=== PATIENT | male | born 1950 | race African-American/Black ===

== ENCOUNTER 2017-05-12 17:13 | Inpatient (IN) | payer SELFPAY ==
[~2017-05-12] VITALS: Ht 175.3 cm; Wt 69.8 kg
[2017-05-12 17:39] LABS: MCH 29.3 PG (29.0-34.0); MCHC 33.3 G/DL (30.0-36.0); MCV 87.8 FL (86-99); PLATELET COUNT 280 K/uL (156-360); RBC DIS.WIDTH-CV 12.3 % (11.8-14.6); RBC DIS.WIDTH-SD 39.7 % (39-53); RED BLOOD COUNT 4.44 M/uL (4.00-5.50); WHITE BLOOD COUNT 6.4 K/uL (4.1-10.2)
[2017-05-12 17:52] LABS: CHLORIDE 106 mEq/L (99-109); POTASSIUM 3.6 mEq/L (3.7-5.4); SODIUM 140 mEq/L (136-147)
[2017-05-12 17:53] LABS: GLUCOSE 113 mg/dL (70-99)
[2017-05-12 17:57] LABS: CREATININE 0.8 mg/dL (0.6-1.3)
[2017-05-12 17:58] LABS: UREA NITROGEN (BUN) 15 mg/dL (9-23)
[2017-05-12 17:59] LABS: GFR ESTIMATE (CALCULATED) > 59 mL/min/ (58.99-99999)
[2017-05-12] MEDS ORDERED: PEPCID20 MG PO (18:37)
[2017-05-12] MEDS ORDERED: NORVASC5 MG PO (18:37)
[2017-05-12] MEDS ORDERED: IBUPROFEN600 MG PO (18:37)
[2017-05-12 23:20] LABS: TROP-I INTERPRETATION NEGATIVE; TROPONIN-I < 0.01 ng/mL (0.0-0.30)
[2017-05-12 23:35] VITALS: BP 174/98
[2017-05-12 23:46] LABS: HDL CHOLESTEROL 35 MG/DL (Desirable>=40); LDL CHOLESTEROL 80 mg/dL (Desirable<100); NON-HDL CHOLESTEROL 91 mg/dL (Desirable<160); TOTAL CHOLESTEROL 126 mg/dL (Desirable<200); TRIGLYCERIDES 54 MG/DL (Normal: <150)
[2017-05-13 04:02] VITALS: BP 178/100
[2017-05-13 06:35] LABS: HEMATOCRIT 38.9 % (38.0-50.0); MCH 29.5 PG (29.0-34.0); MCHC 33.4 G/DL (30.0-36.0); MCV 88.2 FL (86-99); PLATELET COUNT 291 K/uL (156-360); RBC DIS.WIDTH-CV 12.4 % (11.8-14.6); RBC DIS.WIDTH-SD 39.9 % (39-53); RED BLOOD COUNT 4.41 M/uL (4.00-5.50); WHITE BLOOD COUNT 5.3 K/uL (4.1-10.2)
[2017-05-13 06:54] LABS: TROP-I INTERPRETATION NEGATIVE; TROPONIN-I < 0.01 ng/mL (0.0-0.30)
[2017-05-13 07:02] LABS: ALKALINE PHOSPHATASE 66 IU/L (3-129); ALT (GPT) 10 IU/L (3-49); AST (GOT) 10 IU/L (2-34); CHLORIDE 102 MEQ/L (99-109); CREATININE 0.8 MG/DL (0.6-1.3); GFR ESTIMATE (CALCULATED) > 59 mL/min/ (58.99-99999); GLUCOSE 90 mg/dL (70-99); POTASSIUM 3.7 MEQ/L (3.7-5.4); SODIUM 137 MEQ/L (136-147); TOTAL BILIRUBIN 0.8 MG/DL (0.0-1.0); UREA NITROGEN (BUN) 11 mg/dL (9-23)
[2017-05-13 07:49] VITALS: BP 156/98
[2017-05-13 10:57] LABS: TROP-I INTERPRETATION NEGATIVE; TROPONIN-I < 0.01 ng/mL (0.0-0.30)
[2017-05-13 12:00] VITALS: BP 168/94
[2017-05-13 16:00] VITALS: BP 157/87
[2017-05-13 20:00] VITALS: BP 152/92
[2017-05-14 00:06] VITALS: BP 146/98
[2017-05-14 03:29] VITALS: BP 158/94
[2017-05-14 06:57] LABS: BASOPHIL (%) 0.6 % (0-1); EOSINOPHIL COUNT 0.3 K/uL (0-0.3); HEMATOCRIT 38.5 % (38.0-50.0); HEMOGLOBIN 12.9 G/DL (12.5-16.6); IMMATURE GRANULOCYTE (%) 0.3 % (0.0-0.7); LYMPHOCYTE (%) 30.9 % (15-42); LYMPHOCYTE COUNT 1.9 K/uL (1.0-2.8); MCH 29.5 PG (29.0-34.0); MCHC 33.5 G/DL (30.0-36.0); MCV 88.1 FL (86-99); MONOCYTE (%) 8.4 % (3-12); MONOCYTE COUNT 0.5 K/uL (0-0.8); NEUTROPHIL (%) 54.8 % (45-76); NEUTROPHIL COUNT 3.4 K/uL (1.8-6.4); PLATELET COUNT 290 K/uL (156-360); RBC DIS.WIDTH-CV 12.2 % (11.8-14.6); RBC DIS.WIDTH-SD 39.3 % (39-53); RED BLOOD COUNT 4.37 M/uL (4.00-5.50); WHITE BLOOD COUNT 6.2 K/uL (4.1-10.2)
[2017-05-14 07:22] LABS: CHLORIDE 103 MEQ/L (99-109); CREATININE 0.9 MG/DL (0.6-1.3); GFR ESTIMATE (CALCULATED) > 59 mL/min/ (58.99-99999); GLUCOSE 95 mg/dL (70-99); MAGNESIUM 2.2 mg/dl (1.3-2.7); POTASSIUM 3.7 MEQ/L (3.7-5.4); SODIUM 140 MEQ/L (136-147); UREA NITROGEN (BUN) 15 mg/dL (9-23)
[2017-05-14 08:00] VITALS: BP 142/82
[2017-05-14 08:07] LABS: HEMOGLOBIN A1c (GLYCOHEMOGLOB) 4.6 % (Below 5.7)
[2017-05-14] MEDS ORDERED: ATORVASTATIN CA40 MG PO (10:42)
[2017-05-14] MEDS ORDERED: ASPIR-LOW81 MG PO (10:42)
[2017-05-14] MEDS ORDERED: AMLODIPINE BESY10 MG PO (10:42)
[2017-05-14 12:00] VITALS: BP 158/95
== END 2017-05-14 18:16 | disposition home or self-care (01) | DRG 66 ==
LOC: EME 17:13 → ENRESERV 20:51 → EDOF 20:51 → ENRESERV 21:17 → 5SOUTH 23:29
PROVIDERS: Internal Medicine; Physician Assistant
DX: I63.9 Cerebral infarction, unspecified (principal); E87.6 Hypokalemia; I10 Essential (primary) hypertension; R73.9 Hyperglycemia, unspecified; R47.81 Slurred speech; K21.9 Gastro-esophageal reflux disease without esophagitis; I51.7 Cardiomegaly; M25.512 Pain in left shoulder; R29.810 Facial weakness; R29.702 NIHSS score 2
CPT/HCPCS: 70450; 70551; 71045; 73030; 80048; 80053; 80061; 83036; 83735; 84484; 85025; 85027; 93005; 93306; 93880; 97530 GO; 99281; 99285; J1644